=== PATIENT | female | born 1980 | race Caucasian/White ===

== ENCOUNTER 2017-06-30 04:07 | Emergency (ER) | payer SELFPAY ==
[~2017-06-30] VITALS: Ht 160 cm; Wt 127.0 kg
[2017-06-30] MEDS ORDERED: METOPROLOL TART IMMED RELEASE 50 MG TABLET. PO ONE (05:15)
[2017-06-30] MEDS ORDERED: cloNIDine HCL 0.1 MG TABLET PO ONE (05:15)
[2017-06-30 05:19] LABS: BARBITURATES NEG (NEG); BENZODIAZEPINES NEG (NEG); BILIRUBIN,URINE NEGATIVE (NEG); CANNABINOIDS NEG (NEG); COCAINE NEG (NEG); GLUCOSE,URINE NEGATIVE (NEG); METHADONE NEG (NEG); NITRITE,URINE NEGATIVE (NEG); OPIATES NEG (NEG); PHENCYCLIDINE NEG (NEG); PROTEIN,URINE NEGATIVE (NEG-TRACE); UROBILINOGEN,URINE 0.2 mg/dL (0.2 mg/dL)
[2017-06-30 05:32] LABS: BACTERIA,URINE MODERATE /HPF (0-FEW); SQUAMOUS EPITHELIAL CELL,UR MANY /LPF
[2017-06-30 05:39] VITALS: BP 161/80
--- NOTE | 2017-06-30 05:40 | PHYS DOC ---
Adult General Chief Complaint Chief Complaint: DIZZY/LIGHT HEADED HPI HPI Patient is a 37 year old female with dizziness x 2 days. no fever, no n/v/d, + burning with urination, no discharge or new partners. multiple "zits" on face causing pain. larger one by left ear and chest. denies drugs. has hx of PCOS so has always had bad acne Review of Systems Review of Systems Constitutional: Denies fever or chills [] Eyes: Denies change in visual acuity, redness, or eye pain [] HENT: Denies nasal congestion or sore throat [] Respiratory: Denies cough or shortness of breath [] Cardiovascular: No additional information not addressed in HPI [] GI: Denies abdominal pain, nausea, vomiting, bloody stools or diarrhea [] : Denies dysuria or hematuria [] Musculoskeletal: Denies back pain or joint pain [] Integument: Denies rash or skin lesions [] Neurologic: Denies headache, focal weakness or sensory changes [] Endocrine: Denies polyuria or polydipsia [] Current Medications Current Medications Current Medications Medications (Trade) Dose Ordered Sig/Mitra Start Time Stop Time Status Last Admin Dose Admin Clonidine HCl (Catapres) 0.1 mg 1X ONCE 06/30/17 05:15 06/30/17 05:16 DC 06/30/17 05:06 0.1 MG Metoprolol Tartrate (Lopressor) 50 mg 1X ONCE 06/30/17 05:15 06/30/17 05:16 DC 06/30/17 05:06 50 MG Allergies Allergies Allergies Coded Allergies Type Severity Reaction Last Updated Verified No Known Drug Allergies 06/30/17 No Physical Exam Physical Exam Constitutional: Well developed, well nourished, no acute distress, non-toxic appearance. [] HENT: Normocephalic, atraumatic, bilateral external ears normal, oropharynx moist, no oral exudates, nose normal. [] Eyes: PERRLA, EOMI, conjunctiva normal, no discharge. [] Neck: Normal range of motion, no tenderness, supple, no stridor. [] Cardiovascular:Heart rate regular rhythm, no murmur [] Lungs & Thorax: Bilateral breath sounds clear to auscultation [] Abdomen: Bowel sounds normal, soft, no tenderness, no masses, no pulsatile masses. [] Skin: mutiple small 3 mm papules on face. 5mm pustule anterior to left tragus of left ear. no cellulitis. 1.5cm pusutle over sternum, no surrounding cellulitis. Back: No tenderness, no CVA tenderness. [] Extremities: No tenderness, no cyanosis, no clubbing, ROM intact, no edema. [] Neurologic: Alert and oriented X 3, normal motor function, normal sensory function, no focal deficits noted. [] Psychologic: Affect normal, judgement normal, mood normal. [] Current Patient Data Vital Signs Vital Signs Date Time Temp Pulse Resp B/P (MAP) Pulse Ox O2 Delivery O2 Flow Rate FiO2 06/30/17 05:06 104 170/79 Lab Values Laboratory Tests Test 06/30/17 05:00 Urine Collection Type Unknown Urine Color Yellow Urine Clarity Clear Urine pH 7.0 Urine Specific [place] 1.020 Urine Protein Negative mg/dL (NEG-TRACE) Urine Glucose (UA) Negative mg/dL (NEG) Urine Ketones (Stick) Negative mg/dL (NEG) Urine Blood Negative (NEG) Urine Nitrite Negative (NEG) Urine Bilirubin Negative (NEG) Urine Urobilinogen Dipstick 0.2 mg/dL (0.2 mg/dL) Urine Leukocyte Esterase Moderate (NEG) Urine RBC 6-10 /HPF (0-2) Urine WBC 11-20 /HPF (0-4) Urine Squamous Epithelial Cells Many /LPF Urine Bacteria Moderate /HPF (0-FEW) Urine Mucus Marked /LPF Urine Opiates Screen Neg (NEG) Urine Methadone Screen Neg (NEG) Urine Barbiturates Neg (NEG) Urine Phencyclidine Screen Neg (NEG) Urine Amphetamine/Methamphetamine Pos (NEG) Urine Benzodiazepines Screen Neg (NEG) Urine Cocaine Screen Neg (NEG) Urine Cannabinoids Screen Neg (NEG) Urine Ethyl Alcohol Neg (NEG) EKG EKG [] Radiology/Procedures Radiology/Procedures [] Course & Med Decision Making Course & Med Decision Making Pertinent Labs and Imaging studies reviewed. (See chart for details) pt +for meth. she states she has had staph infections in the past but doesn't think she has had MRSA. will place on bactrim for 2 weeks then daily for 1 month for chronic acne. will add differin cream to face as well. bactrim for uti also Dragon Disclaimer Dragon Disclaimer This electronic medical record was generated, in whole or in part, using a voice recognition dictation system. Departure Departure Disposition: 01 HOME, SELF-CARE Condition: GOOD Referrals: NO PCP (PCP) Patient Instructions: Staphylococcal Infections Additional Instructions: do warm compresses to chest. return if redness, swelling, pain worsens. tylenol and ibuprofen for pain. start bactrim twice-a-day for 2 weeks then daily for 1 month. differin cream at night for 3 months or until acne improved. return if any concerns. start metoprolol for blood pressure. try to find a family doctor to follow-up with for high blood pressure Scripts Metoprolol Tartrate (METOPROLOL TARTRATE) 50 Mg Tablet 1 TAB PO BID, #60 TAB 5 Refills Prov: PATRICIO PATRICIA MD 06/30/17 Sulfamethoxazole/Trimethoprim (BACTRIM DS TABLET) 1 Each Tablet 1 TAB PO BID for 10 Days, #20 TAB Prov: PATRICIO PATRICIA MD 06/30/17 Adapalene (DIFFERIN) 45 Gm Cream..g. 1 DREW TP QHS for 90 Days, #45 GM 5 Refills Prov: PATRICIO PATRICIA MD 06/30/17 PATRICIO PATRICIA MD Jun 30, 2017 05:40
[2017-06-30] MEDS ORDERED: METO50TA2 PO (05:45)
[2017-06-30] MEDS ORDERED: SULF1TAB24 PO (05:45)
[2017-06-30] MEDS ORDERED: ADAP45CR2 TP (05:45)
== END 2017-06-30 06:03 | disposition home or self-care (01) ==
LOC: ER 04:07
DX: R42 Dizziness and giddiness (principal); L08.9 Local infection of the skin and subcutaneous tissue, unspecified; R23.8 Other skin changes; R30.0 Dysuria; R51 Headache
CPT/HCPCS: 80307; 81001; 87086; 99284; G0479